=== PATIENT | female | born 1950 | race Caucasian/White ===

== ENCOUNTER 2018-04-30 22:34 | Emergency (ER) | payer OTHER ==
[~2018-04-30] VITALS: Ht 160 cm; Wt 101.2 kg
[~2018-04-30 22:34] MED LIST: ALBU90OI6 INH; ALBU90OI61 INH; AMOCLA875 PO; AMOX875 PO; Amitriptyline H10 MG PO; Anti-Diarrhea2 MG; BENZ100A PO; BYDUREON P2 MG/0.65 SC; Budeprion Sr150 MG PO; CEFD300 PO; CHOL10002 PO; CITA10S PO; DILT120 PO; DILT240 PO; EPIN.3I; EPIN.3I IM; FLONASE ALLERG9.9 ML; FLUSAL2505 INH; FLUSAL5005 INH; FLUT.05NI; FURO80 PO; Flonase 0.05% N16 GM INH; GABA100 PO; HYDACE5 PO; HYDACE5325 PO; IPRA.06NI; LANS30EC; LANS30EC PO; LISI20 PO; MELO7.5 PO; METF500; METF500 PO; MOME220I IH; MONT10T PO; NICO7 TOP; Nicorette4 MG BC; OMEP20ER PO; POTA10T PO; POTCHL10ER PO; PRED20 PO; ROSU10TA PO; SITA25T2; TIOT18 IH; TIOT18 INH; TOPI100 PO; TRAM50 PO; TRAV.004OP; TRAV.004OP OD; TRULICITY1.5 MG/0.5 SC; Travatan Z5 ML; VENL150ER PO; VENLAFAXINE HC150 MG PO; VITAMIN D35000 UNIT; Voltaren100 GM
== END 2018-04-30 23:12 | disposition home or self-care (01) ==
LOC: ER 22:34
DX: S60.452A Superficial foreign body of right middle finger, initial encounter (principal); Z23 Encounter for immunization; I11.0 Hypertensive heart disease with heart failure; I50.9 Heart failure, unspecified; J44.9 Chronic obstructive pulmonary disease, unspecified; F41.9 Anxiety disorder, unspecified; F17.200 Nicotine dependence, unspecified, uncomplicated; Z91.038 Other insect allergy status; Z88.2 Allergy status to sulfonamides; Z88.6 Allergy status to analgesic agent; Z88.1 Allergy status to other antibiotic agents; Z88.5 Allergy status to narcotic agent; Z88.8 Allergy status to other drugs, medicaments and biological substances; Z79.899 Other long term (current) drug therapy; Z79.84 Long term (current) use of oral hypoglycemic drugs; W45.8XXA Other foreign body or object entering through skin, initial encounter
CPT/HCPCS: 10120; 90714; 96372; 99282-25

== ENCOUNTER → 2019-01-14 | Outpatient (CLI) | payer OTHER ==
[~2019-01-14] MED LIST changes: +CALCIUM + D3 E1 EACH PO; +Pepcid20 MG PO
== END | disposition home or self-care (01) ==
LOC: PLD 14:19 → LAB SHORT 14:19
DX: R22.1 Localized swelling, mass and lump, neck (principal)
CPT/HCPCS: 88173

== ENCOUNTER 2019-10-20 22:38 | Emergency (ER) | payer OTHER ==
[~2019-10-20] VITALS: Ht 160 cm; Wt 98.0 kg
[2019-10-20 23:25] LABS: BASOPHILS ABSOLUTE AUTO 0.05 K/mm3 (0.00-0.23); BASOPHILS PERCENT AUTO 1 % (0-2); EOSINOPHILS ABSOLUTE AUTO 0.18 K/mm3 (0.00-0.68); EOSINOPHILS PERCENT AUTO 2 % (0-6); Hematocrit 40.4 % (33.0-51.0); Hemoglobin 13.2 g/dL (11.5-16.0); IMMATURE GRAN ABSOLUTE AUTO 0.03 K/mm3 (0.00-0.10); IMMATURE GRAN PERCENT AUTO 0 % (0-1); LYMPHOCYTES PERCENT AUTO 26 % (21-46); MONOCYTES ABSOLUTE AUTO 0.58 K/mm3 (0.16-1.47); MONOCYTES PERCENT AUTO 7 % (4-13); Mean Corpuscular HGB 29.7 pg (26.0-34.0); Mean Corpuscular HGB Conc 32.7 g/dL (31.5-36.5); Mean Corpuscular Volume 91 fL (80-100); Mean Platelet Volume 11.5 fL (9.1-12.4); NEUTROPHILS ABSOLUTE AUTO 5.31 K/mm3 (1.96-9.15); NEUTROPHILS PERCENT AUTO 64 % (41-73); Platelet Count 170 K/mm3 (150-400); RDW Coefficient Variation 13.1 % (11.7-14.2); RDW Standard Deviation 43.7 fL (35.1-46.3); Red Blood Cell Count 4.44 M/mm3 (3.80-5.20); White Blood Cell Count 8.35 K/mm3 (4.00-11.30)
[2019-10-20 23:44] LABS: Alanine Aminotransfer (ALT/SGP 21 U/L (12-78); Albumin, Blood 3.3 g/dL (3.4-5.0); Albumin/Globulin Ratio 0.9 (0.8-1.8); Alk Phos 80 U/L (50-136); Anion Gap 6 mmol/L (6-16); Aspartate Aminotrans (AST/SGOT 11 U/L (12-37); Bilirubin, Total 0.3 mg/dL (0.1-1.0); Blood Urea Nitrogen 11 mg/dL (8-24); Bun/Creatinine Ratio 16.1 (12.0-20.0); CO2, Blood 26 mmol/L (21-32); Calcium, Blood 8.8 mg/dL (8.5-10.1); Chloride, Blood 112 mmol/L (98-108); Creatinine, Blood 0.68 mg/dL (0.40-1.00); Globulin, Blood 3.7 g/dL (2.2-4.0); Glomerular Filtration Rate >60 (60-); Glucose, Blood 164 mg/dL (70-99); Potassium, Blood 3.2 mmol/L (3.5-5.5); Sodium, Blood 144 mmol/L (136-145); Troponin I <0.015 ng/mL (0.000-0.040)
== END 2019-10-21 06:07 | disposition home or self-care (01) ==
LOC: ER 22:38
PROVIDERS: Physician Assistant
DX: R07.9 Chest pain, unspecified (principal); I11.0 Hypertensive heart disease with heart failure; I50.9 Heart failure, unspecified; J44.9 Chronic obstructive pulmonary disease, unspecified; F41.9 Anxiety disorder, unspecified; F17.210 Nicotine dependence, cigarettes, uncomplicated; Z91.038 Other insect allergy status; Z88.2 Allergy status to sulfonamides; Z88.6 Allergy status to analgesic agent; Z88.1 Allergy status to other antibiotic agents; Z88.8 Allergy status to other drugs, medicaments and biological substances; Z88.5 Allergy status to narcotic agent; Z79.899 Other long term (current) drug therapy
CPT/HCPCS: 36415; 71046; 80053; 83690; 84484; 85025; 93005; 93010; 94644; 96374; 99284-25; J2060

== ENCOUNTER 2019-11-16 17:41 | Emergency (ER) | payer OTHER ==
[~2019-11-16] VITALS: Ht 160 cm; Wt 98.0 kg
[2019-11-16 18:32] LABS: BASOPHILS ABSOLUTE AUTO 0.04 K/mm3 (0.00-0.23); BASOPHILS PERCENT AUTO 0 % (0-2); EOSINOPHILS ABSOLUTE AUTO 0.11 K/mm3 (0.00-0.68); EOSINOPHILS PERCENT AUTO 1 % (0-6); Hematocrit 41.8 % (33.0-51.0); Hemoglobin 13.6 g/dL (11.5-16.0); IMMATURE GRAN ABSOLUTE AUTO 0.03 K/mm3 (0.00-0.10); IMMATURE GRAN PERCENT AUTO 0 % (0-1); LYMPHOCYTES ABSOLUTE AUTO 2.03 K/mm3 (0.84-5.20); LYMPHOCYTES PERCENT AUTO 22 % (21-46); MONOCYTES ABSOLUTE AUTO 0.76 K/mm3 (0.16-1.47); MONOCYTES PERCENT AUTO 8 % (4-13); Mean Corpuscular HGB 29.2 pg (26.0-34.0); Mean Corpuscular HGB Conc 32.5 g/dL (31.5-36.5); Mean Corpuscular Volume 90 fL (80-100); Mean Platelet Volume 11.4 fL (9.1-12.4); NEUTROPHILS ABSOLUTE AUTO 6.38 K/mm3 (1.96-9.15); NEUTROPHILS PERCENT AUTO 68 % (41-73); Platelet Count 179 K/mm3 (150-400); RDW Standard Deviation 42.6 fL (35.1-46.3); Red Blood Cell Count 4.66 M/mm3 (3.80-5.20); White Blood Cell Count 9.35 K/mm3 (4.00-11.30)
[2019-11-16 18:47] LABS: Alanine Aminotransfer (ALT/SGP 21 U/L (12-78); Albumin, Blood 3.8 g/dL (3.4-5.0); Albumin/Globulin Ratio 0.9 (0.8-1.8); Alk Phos 79 U/L (50-136); Anion Gap 2 mmol/L (6-16); Aspartate Aminotrans (AST/SGOT 16 U/L (12-37); Bilirubin, Total 0.6 mg/dL (0.1-1.0); Blood Urea Nitrogen 14 mg/dL (8-24); Bun/Creatinine Ratio 18.2 (12.0-20.0); CO2, Blood 27 mmol/L (21-32); Calcium, Blood 9.2 mg/dL (8.5-10.1); Chloride, Blood 108 mmol/L (98-108); Creatinine, Blood 0.77 mg/dL (0.40-1.00); Globulin, Blood 4.2 g/dL (2.2-4.0); Glomerular Filtration Rate >60 (60-); Glucose, Blood 97 mg/dL (70-99); Potassium, Blood 3.8 mmol/L (3.5-5.5); Sodium, Blood 137 mmol/L (136-145); Troponin I <0.015 ng/mL (0.000-0.040)
[2019-11-16] MEDS ORDERED: METOPROLOL SUCC25 MG PO (19:20)
[2019-11-16] MEDS ORDERED: ISOSORBIDE MONO30 MG PO (19:20)
[2019-11-16] MEDS ORDERED: DILTIAZEM 24HR240 M3 PO (19:22)
[2019-11-16] MEDS ORDERED: VENL75ER PO (19:23)
[2019-11-16] MEDS ORDERED: Augmentin 875-1 EACH PO (19:45)
[2019-11-16] MEDS ORDERED: ACETAMINOPHEN500 MG PO (20:17)
[2019-11-16] MEDS ORDERED: Pseudoephedrine30 MG PO (20:17)
[2019-11-16] MEDS ORDERED: Acetaminophen-1 EAC1 PO (20:21)
== END 2019-11-16 20:30 | disposition home or self-care (01) ==
LOC: ER 17:41
PROVIDERS: Emergency Medicine
DX: H66.91 Otitis media, unspecified, right ear (principal); I11.0 Hypertensive heart disease with heart failure; I50.9 Heart failure, unspecified; J44.9 Chronic obstructive pulmonary disease, unspecified; F41.9 Anxiety disorder, unspecified; F17.210 Nicotine dependence, cigarettes, uncomplicated; Z91.030 Bee allergy status; Z88.2 Allergy status to sulfonamides; Z88.6 Allergy status to analgesic agent; Z88.1 Allergy status to other antibiotic agents; Z88.5 Allergy status to narcotic agent; Z88.8 Allergy status to other drugs, medicaments and biological substances; Z79.899 Other long term (current) drug therapy
CPT/HCPCS: 36415; 71046; 80053; 84484; 85025; 93005; 93010; 99284-25

== ENCOUNTER 2019-12-01 07:01 | Day surgery (SDC) | payer OTHER ==
[~2019-12-01] VITALS: Wt 100.7 kg
[~2019-12-01 07:01] MED LIST changes: +ACETAMINOPHEN500 MG PO; +Acetaminophen-1 EAC1 PO; +Augmentin 875-1 EACH PO; +DILTIAZEM 24HR240 M3 PO; +Flonase 0.05% N16 GM; -Flonase 0.05% N16 GM INH; +ISOSORBIDE MONO30 MG PO; +METOPROLOL SUCC25 MG PO; +Pseudoephedrine30 MG PO; +VENL75ER PO
--- NOTE | 2019-12-01 08:01 | NUR ---
PATIENT TRANSPORTED TO ED ROOM #4 VIA GURNEY FOR C/O NEW CHANGED CHEST PAIN AND SOB. APICAL HEAR RATE 36BPM, RADIAL PULSE 36 BPM. STATES SHE HAS HAD CHEST PAIN AND SOB FOR THE PAST 2 MONTHS, BUT FEELS DIFFERENT TODAY. 3 LEAD EKG SHOWS FREQUENT PVCs. PATIENT STATES "IF I HAD MY NITRO IN MY PURSE, I'D TAKE IT." CT NOTIFIED PATIENT BEING TAKEN TO ED AND SPOKE WITH NICKI TERAN, WHO LOOKED AT 3-LEAD EKG AND STATED CTA COULD NOT BE COMPLETED WITH RHYTHM SHOWN.
[2019-12-01] MEDS ORDERED: NITRSPRAY SL (08:07)
[2019-12-01] MEDS ORDERED: FURO40 PO (08:14)
[2019-12-01] MEDS ORDERED: COMBIVENT RESPIM4 GM INH (08:14)
[2019-12-01] MEDS ORDERED: PROAIR RESPICL90 MCG INH (08:16)
[2019-12-01] MEDS ORDERED: ALEN70 PO (08:17)
[2019-12-01] MEDS ORDERED: POTA8 PO (08:17)
[2019-12-01] MEDS ORDERED: Crestor40 MG PO (08:18)
[2019-12-01] MEDS ORDERED: VENL75ER PO (08:18)
[2019-12-01] MEDS ORDERED: MELO7.5 PO (08:18)
[2019-12-01] MEDS ORDERED: VENL150ER PO (08:18)
[2019-12-01] MEDS ORDERED: TIOT18 INH (10:31)
[2019-12-01] MEDS ORDERED: TRAZ50 PO (10:58)
[2019-12-01] MEDS ORDERED: Klonopin0.5 MG PO (10:58)
[2019-12-01] MEDS ORDERED: Lexapro 2020 MG PO (10:58)
== END 2019-12-01 23:10 | disposition home or self-care (01) ==
LOC: CT 07:01 → ORD 07:01 → CT 08:00 → ORD 23:10
DX: R07.89 Other chest pain (principal); I10 Essential (primary) hypertension; Z88.6 Allergy status to analgesic agent; Z91.030 Bee allergy status; Z88.5 Allergy status to narcotic agent; Z91.013 Allergy to seafood; Z91.018 Allergy to other foods; Z79.899 Other long term (current) drug therapy

== ENCOUNTER 2019-12-01 07:57 | Emergency (ER) | payer OTHER ==
[~2019-12-01] VITALS: Ht 160 cm; Wt 100.7 kg
[2019-12-01] MEDS ORDERED: NITRSPRAY SL (08:07)
[2019-12-01] MEDS ORDERED: COMBIVENT RESPIM4 GM INH (08:14)
[2019-12-01] MEDS ORDERED: FURO40 PO (08:14)
[2019-12-01] MEDS ORDERED: PROAIR RESPICL90 MCG INH (08:16)
[2019-12-01] MEDS ORDERED: POTA8 PO (08:17)
[2019-12-01] MEDS ORDERED: ALEN70 PO (08:17)
[2019-12-01] MEDS ORDERED: MELO7.5 PO (08:18)
[2019-12-01] MEDS ORDERED: Crestor40 MG PO (08:18)
[2019-12-01] MEDS ORDERED: VENL150ER PO (08:18)
[2019-12-01] MEDS ORDERED: VENL75ER PO (08:18)
[2019-12-01 08:36] LABS: BASOPHILS ABSOLUTE AUTO 0.04 K/mm3 (0.00-0.23); BASOPHILS PERCENT AUTO 1 % (0-2); EOSINOPHILS PERCENT AUTO 3 % (0-6); Hematocrit 39.2 % (33.0-51.0); Hemoglobin 12.5 g/dL (11.5-16.0); IMMATURE GRAN ABSOLUTE AUTO 0.01 K/mm3 (0.00-0.10); IMMATURE GRAN PERCENT AUTO 0 % (0-1); LYMPHOCYTES ABSOLUTE AUTO 2.12 K/mm3 (0.84-5.20); LYMPHOCYTES PERCENT AUTO 32 % (21-46); MONOCYTES ABSOLUTE AUTO 0.56 K/mm3 (0.16-1.47); MONOCYTES PERCENT AUTO 8 % (4-13); Mean Corpuscular HGB 29.3 pg (26.0-34.0); Mean Corpuscular HGB Conc 31.9 g/dL (31.5-36.5); Mean Corpuscular Volume 92 fL (80-100); Mean Platelet Volume 11.6 fL (9.1-12.4); NEUTROPHILS ABSOLUTE AUTO 3.75 K/mm3 (1.96-9.15); NEUTROPHILS PERCENT AUTO 56 % (41-73); Platelet Count 151 K/mm3 (150-400); RDW Coefficient Variation 13.2 % (11.7-14.2); RDW Standard Deviation 44.4 fL (35.1-46.3); Red Blood Cell Count 4.26 M/mm3 (3.80-5.20); White Blood Cell Count 6.68 K/mm3 (4.00-11.30)
[2019-12-01 09:00] LABS: Alanine Aminotransfer (ALT/SGP 21 U/L (12-78); Albumin, Blood 3.3 g/dL (3.4-5.0); Albumin/Globulin Ratio 0.9 (0.8-1.8); Alk Phos 82 U/L (50-136); Anion Gap 4 mmol/L (6-16); Aspartate Aminotrans (AST/SGOT 15 U/L (12-37); Bilirubin, Total 0.4 mg/dL (0.1-1.0); Blood Urea Nitrogen 11 mg/dL (8-24); Bun/Creatinine Ratio 25.9 (12.0-20.0); CO2, Blood 27 mmol/L (21-32); Calcium, Blood 8.6 mg/dL (8.5-10.1); Chloride, Blood 110 mmol/L (98-108); Creatinine, Blood 0.42 mg/dL (0.40-1.00); Globulin, Blood 3.6 g/dL (2.2-4.0); Glomerular Filtration Rate >60 (60-); Glucose, Blood 95 mg/dL (70-99); Potassium, Blood 3.8 mmol/L (3.5-5.5); Sodium, Blood 141 mmol/L (136-145); Total Protein, Blood 6.9 g/dL (6.4-8.2); Troponin I <0.015 ng/mL (0.000-0.040)
[2019-12-01 09:01] LABS: International Normalized Ratio 0.98; Prothrombin Time Results 10.5 Sec (9.7-11.5)
[2019-12-01] MEDS ORDERED: TIOT18 INH (10:31)
[2019-12-01] MEDS ORDERED: Lexapro 2020 MG PO (10:58)
[2019-12-01] MEDS ORDERED: Klonopin0.5 MG PO (10:58)
[2019-12-01] MEDS ORDERED: TRAZ50 PO (10:58)
== END 2019-12-01 11:36 | disposition home or self-care (01) ==
LOC: ER 07:57
PROVIDERS: Emergency Medicine
DX: R07.89 Other chest pain (principal); F43.21 Adjustment disorder with depressed mood; Z88.6 Allergy status to analgesic agent; Z88.5 Allergy status to narcotic agent; Z88.2 Allergy status to sulfonamides; Z91.030 Bee allergy status; Z79.899 Other long term (current) drug therapy; I11.0 Hypertensive heart disease with heart failure; I50.9 Heart failure, unspecified; F43.10 Post-traumatic stress disorder, unspecified; F41.9 Anxiety disorder, unspecified; F17.210 Nicotine dependence, cigarettes, uncomplicated
CPT/HCPCS: 36415; 71046; 80053; 83735; 84484; 85025; 85610; 93005; 93010; 94640; J2060; J7030

== ENCOUNTER 2020-11-22 23:08 | Emergency (ER) | payer MEDICARE ==
[~2020-11-22] VITALS: Ht 160 cm; Wt 94.8 kg
[~2020-11-22 23:08] MED LIST changes: +ALEN70 PO; +COMBIVENT RESPIM4 GM INH; +Crestor40 MG PO; +FURO40 PO; +Klonopin0.5 MG PO; +Lexapro 2020 MG PO; +NITRSPRAY SL; +POTA8 PO; +PROAIR RESPICL90 MCG INH; +TRAZ50 PO
[2020-11-23 00:51] LABS: BASOPHILS ABSOLUTE AUTO 0.08 K/mm3 (0.00-0.23); BASOPHILS PERCENT AUTO 1 % (0-2); EOSINOPHILS ABSOLUTE AUTO 0.13 K/mm3 (0.00-0.68); EOSINOPHILS PERCENT AUTO 1 % (0-6); Hematocrit 41.6 % (33.0-51.0); Hemoglobin 13.2 g/dL (11.5-16.0); IMMATURE GRAN ABSOLUTE AUTO 0.02 K/mm3 (0.00-0.10); IMMATURE GRAN PERCENT AUTO 0 % (0-1); LYMPHOCYTES ABSOLUTE AUTO 2.38 K/mm3 (0.84-5.20); LYMPHOCYTES PERCENT AUTO 24 % (21-46); MONOCYTES ABSOLUTE AUTO 0.83 K/mm3 (0.16-1.47); MONOCYTES PERCENT AUTO 9 % (4-13); Mean Corpuscular HGB 28.4 pg (26.0-34.0); Mean Corpuscular HGB Conc 31.7 g/dL (31.5-36.5); Mean Corpuscular Volume 90 fL (80-100); Mean Platelet Volume 11.1 fL (9.1-12.4); NEUTROPHILS ABSOLUTE AUTO 6.34 K/mm3 (1.96-9.15); NEUTROPHILS PERCENT AUTO 65 % (41-73); Platelet Count 205 K/mm3 (150-400); RDW Coefficient Variation 13.1 % (11.7-14.2); RDW Standard Deviation 43.1 fL (35.1-46.3); Red Blood Cell Count 4.64 M/mm3 (3.80-5.20); White Blood Cell Count 9.78 K/mm3 (4.00-11.30)
[2020-11-23 01:10] LABS: Alanine Aminotransfer (ALT/SGP 20 U/L (12-78); Albumin, Blood 3.5 g/dL (3.4-5.0); Albumin/Globulin Ratio 0.8 (0.8-1.8); Alk Phos 78 U/L (50-136); Anion Gap 5 mmol/L (6-16); Aspartate Aminotrans (AST/SGOT 13 U/L (12-37); Bilirubin, Total 0.6 mg/dL (0.1-1.0); Blood Urea Nitrogen 12 mg/dL (8-24); Bun/Creatinine Ratio 19.9 (12.0-20.0); CO2, Blood 27 mmol/L (21-32); Calcium, Blood 9.1 mg/dL (8.5-10.1); Chloride, Blood 108 mmol/L (98-108); Globulin, Blood 4.2 g/dL (2.2-4.0); Glomerular Filtration Rate >60 (60-); Glucose, Blood 92 mg/dL (70-99); Potassium, Blood 3.8 mmol/L (3.5-5.5); Sodium, Blood 140 mmol/L (136-145); Total Protein, Blood 7.7 g/dL (6.4-8.2)
[2020-11-23] MEDS ORDERED: Cleocin HCl300 MG PO (03:00)
== END 2020-11-23 03:55 | disposition home or self-care (01) ==
LOC: ER 23:08
PROVIDERS: Emergency Medicine
DX: K11.21 Acute sialoadenitis (principal); I11.0 Hypertensive heart disease with heart failure; I50.9 Heart failure, unspecified; J44.9 Chronic obstructive pulmonary disease, unspecified; F17.210 Nicotine dependence, cigarettes, uncomplicated; Z79.899 Other long term (current) drug therapy; Z88.6 Allergy status to analgesic agent; Z88.5 Allergy status to narcotic agent; Z91.030 Bee allergy status
CPT/HCPCS: 36415; 70491; 80053; 85025; 96365-59; 99283-25; Q9967

== ENCOUNTER → 2022-05-19 | Outpatient (CLI) | payer MEDICARE ==
[~2022-05-19] MED LIST changes: +Cleocin HCl300 MG PO
[2022-05-19 13:34] LABS: Albumin, Blood 3.4 g/dL (3.4-5.0); Albumin/Globulin Ratio 0.9 (0.8-1.8); Bilirubin, Total 1.3 mg/dL (0.1-1.0); Bun/Creatinine Ratio 19.4 (12.0-20.0); Calcium, Blood 8.6 mg/dL (8.5-10.1); Creatinine, Blood 0.67 mg/dL (0.40-1.00); Globulin, Blood 3.7 g/dL (2.2-4.0); Potassium, Blood 3.7 mmol/L (3.5-5.5); Total Protein, Blood 7.1 g/dL (6.4-8.2)
[2022-05-19 13:42] LABS: BASOPHILS ABSOLUTE AUTO 0.03 K/mm3 (0.00-0.23); BASOPHILS PERCENT AUTO 1 % (0-2); EOSINOPHILS ABSOLUTE AUTO 0.05 K/mm3 (0.00-0.68); EOSINOPHILS PERCENT AUTO 1 % (0-6); Hematocrit 37.6 % (33.0-51.0); Hemoglobin 12.8 g/dL (11.5-16.0); IMMATURE GRAN ABSOLUTE AUTO 0.01 K/mm3 (0.00-0.10); IMMATURE GRAN PERCENT AUTO 0 % (0-1); LYMPHOCYTES PERCENT AUTO 9 % (21-46); MONOCYTES ABSOLUTE AUTO 0.32 K/mm3 (0.16-1.47); MONOCYTES PERCENT AUTO 6 % (4-13); Mean Corpuscular HGB 29.5 pg (26.0-34.0); Mean Corpuscular Volume 87 fL (80-100); Mean Platelet Volume 11.1 fL (9.1-12.4); NEUTROPHILS ABSOLUTE AUTO 4.74 K/mm3 (1.96-9.15); NEUTROPHILS PERCENT AUTO 84 % (41-73); Platelet Count 172 K/mm3 (150-400); RDW Coefficient Variation 13.2 % (11.7-14.2); RDW Standard Deviation 41.3 fL (35.1-46.3); Red Blood Cell Count 4.34 M/mm3 (3.80-5.20); White Blood Cell Count 5.65 K/mm3 (4.00-11.30)
== END | disposition home or self-care (01) ==
LOC: LAB 13:20 → LAB SHORT 13:20
PROVIDERS: Chiropractor
DX: K52.9 Noninfective gastroenteritis and colitis, unspecified (principal)
CPT/HCPCS: 80053; 85025

== ENCOUNTER 2023-08-22 06:22 | Day surgery (SDC) | payer MEDICARE ==
[2023-08-22] VITALS (10 sets, daily range): BP systolic 104–134; BP diastolic 61–102
[~2023-08-22] VITALS: Ht 157.5 cm; Wt 88.0 kg
[~2023-08-22 06:22] MED LIST changes: +CLOP75 PO; +COMBIVENT RESPIM4 G1 INH; +EZET10 PO
[2023-08-22] MEDS ORDERED: VENL75ER PO (07:16)
== END 2023-08-22 13:37 | disposition home or self-care (01) ==
LOC: MHTC 06:22
DX: R07.89 Other chest pain (principal); I25.10 Atherosclerotic heart disease of native coronary artery without angina pectoris; Q23.1 Congenital insufficiency of aortic valve; E78.5 Hyperlipidemia, unspecified; I10 Essential (primary) hypertension; Z88.2 Allergy status to sulfonamides; Z88.1 Allergy status to other antibiotic agents; Z88.5 Allergy status to narcotic agent; Z88.6 Allergy status to analgesic agent; Z79.02 Long term (current) use of antithrombotics/antiplatelets; Z79.899 Other long term (current) drug therapy
CPT/HCPCS: 76937; 93458; 99152; 99153; C1769; C1887; C1894; J1644; J2250; J3010; J7030; J7050; Q9967

== ENCOUNTER → 2024-11-21 | Outpatient (CLI) | payer MEDICARE ==
[2024-11-21 19:01] LABS: Microalb/Creat Ratio UR, Rand 18.632 mg/g (0.000-30.000); Microalbumin, Random Urine 53.1 mg/L (0.000-20.000)
== END | disposition home or self-care (01) ==
LOC: LAB 13:16 → LAB SHORT 13:16
PROVIDERS: Family Medicine
DX: E11.42 Type 2 diabetes mellitus with diabetic polyneuropathy (principal)
CPT/HCPCS: 82043; 82570

== ENCOUNTER 2025-05-02 21:31 | Emergency (ER) | payer OTHER, MEDICARE ==
[~2025-05-02] VITALS: Ht 157.5 cm; Wt 86.2 kg
[2025-05-02 21:43] VITALS: BP 164/107
[2025-05-03] MEDS ORDERED: AMOCLA875 PO (00:32)
== END 2025-05-03 00:50 | disposition home or self-care (01) ==
LOC: ER 21:31
DX: S81.851A Open bite, right lower leg, initial encounter (principal); M25.531 Pain in right wrist; J44.9 Chronic obstructive pulmonary disease, unspecified; I11.0 Hypertensive heart disease with heart failure; I50.9 Heart failure, unspecified; F43.10 Post-traumatic stress disorder, unspecified; F17.210 Nicotine dependence, cigarettes, uncomplicated; W54.0XXA Bitten by dog, initial encounter; Z79.02 Long term (current) use of antithrombotics/antiplatelets; Z79.51 Long term (current) use of inhaled steroids; Z88.5 Allergy status to narcotic agent; Z88.6 Allergy status to analgesic agent; Z88.1 Allergy status to other antibiotic agents; Z88.8 Allergy status to other drugs, medicaments and biological substances
CPT/HCPCS: 12001; 73110; 73590; 99283-25; A9270

== ENCOUNTER → 2025-08-17 | Outpatient (CLI) | payer MEDICARE ==
[2025-08-17 16:14] LABS: BASOPHILS ABSOLUTE AUTO 0.05 K/mm3 (0.00-0.23); BASOPHILS PERCENT AUTO 1 % (0-2); EOSINOPHILS ABSOLUTE AUTO 0.22 K/mm3 (0.00-0.68); EOSINOPHILS PERCENT AUTO 3 % (0-6); Hematocrit 38.4 % (33.0-51.0); Hemoglobin 12.8 g/dL (11.5-16.0); IMMATURE GRAN ABSOLUTE AUTO 0.03 K/mm3 (0.00-0.10); IMMATURE GRAN PERCENT AUTO 0 % (0-1); LYMPHOCYTES ABSOLUTE AUTO 1.82 K/mm3 (0.84-5.20); LYMPHOCYTES PERCENT AUTO 26 % (21-46); MONOCYTES ABSOLUTE AUTO 0.60 K/mm3 (0.16-1.47); MONOCYTES PERCENT AUTO 8 % (4-13); Mean Corpuscular HGB Conc 33.3 g/dL (31.5-36.5); Mean Corpuscular Volume 92 fL (80-100); NEUTROPHILS ABSOLUTE AUTO 4.39 K/mm3 (1.96-9.15); NEUTROPHILS PERCENT AUTO 62 % (41-73); NRBC ABSOLUTE 0.00 K/mm3 (0.00-0.02); NRBC Auto 0.0 /100 WBC (0.0-0.2); Platelet Count 243 K/mm3 (150-400); RDW Coefficient Variation 15.9 % (11.7-14.2); RDW Standard Deviation 54.3 fL (35.1-46.3)
[2025-08-17 20:34] LABS: Alanine Aminotransfer (ALT/SGP 18 U/L (12-78); Albumin, Blood 3.4 g/dL (3.4-5.0); Albumin/Globulin Ratio 0.9 (0.8-1.8); Anion Gap 9 mmol/L (3-11); Aspartate Aminotrans (AST/SGOT 15 U/L (12-37); Bilirubin, Total 0.5 mg/dL (0.1-1.0); Blood Urea Nitrogen 7 mg/dL (8-24); CO2, Blood 25 mmol/L (21-32); Calcium, Blood 9.0 mg/dL (8.5-10.1); Chloride, Blood 110 mmol/L (98-108); Creatinine, Blood 0.62 mg/dL (0.40-1.00); Globulin, Blood 3.8 g/dL (2.2-4.0); Glucose, Blood 85 mg/dL (70-99); Potassium, Blood 4.2 mmol/L (3.5-5.5); Sodium, Blood 140 mmol/L (136-145); Thyroid Stimulating Hormone 5.220 uIU/mL (0.360-4.800); Total Protein, Blood 7.2 g/dL (6.4-8.2)
== END ==
LOC: LAB 15:35 → LAB SHORT 15:35
PROVIDERS: Family Medicine
DX: E78.2 Mixed hyperlipidemia (principal); E11.69 Type 2 diabetes mellitus with other specified complication; R79.89 Other specified abnormal findings of blood chemistry
CPT/HCPCS: 80053; 83036; 84439; 84443; 84479; 85025

== ENCOUNTER → 2025-09-01 | Outpatient (CLI) | payer MEDICARE ==
[2025-09-01 14:05] LABS: CHOL/HDL RATIO 2.3; Cholesterol 114 mg/dL (50-200); HDL Cholesterol 49 mg/dL (>39); LDL/HDL RATIO 0.7; Low Density Lipoprotein Chol 36 mg/dL (0-110); Triglycerides 143 mg/dL (30-160); Very Low Density Lipoprot Chol 28 mg/dL (6-32)
== END ==
LOC: LAB SHORT 11:00 → LAB 11:00
PROVIDERS: Family Medicine
DX: E78.2 Mixed hyperlipidemia (principal)
CPT/HCPCS: 80061